=== PATIENT | female | born 1970 | race Caucasian/White ===

== ENCOUNTER 2019-12-10 16:19 | Outpatient (REF) | payer SELFPAY ==
--- NOTE | 2019-12-10 15:40 | PAPFT_PTH ---
PATIENT: Donna Mcfarlane LOC: [facility] U#:[id number] AGE/SX: 49/F ROOM: RE12/10/[address]: PHUONG Gongora : 1970 BED: DIS: 12/10/2019 SPEC #: [id number] RECD: 12/13/19 12:34 STATUS: DARCIE REQ #: [id number] GEORGIE: 12/10/19 15:[address]: Marycruz Ko DEPT: ON LICENSE OF [facility] Cytology RECD BY: Yanely Dobbins ENTERED: 12/13/19 12:34 SP TYPE: PAPFT OT DR: Unknown,Unknown Tissues: 1 - CX/ENDOCX FOR PAP SMEARS Procedures: PAP THIN PREP/[facility] Screening HPV DNA PROBE Comments: [id number]
[2019-12-13 15:46] LABS: Chlamydia Result Negative (Negative); GC Result Negative (Negative)
== END 2019-12-10 16:39 ==
LOC: LBN 16:19
PROVIDERS: Visit Provider Nurse Practitioner Family
DX: Z11.3 Encounter for screening for infections with a predominantly sexual mode of transmission (principal); Z12.4 Encounter for screening for malignant neoplasm of cervix; Z11.51 Encounter for screening for human papillomavirus (HPV)
CPT/HCPCS: 87491; 87591; 88142; 87624

== ENCOUNTER 2021-01-31 01:29 | Outpatient (CLI) | payer OTHER, SELFPAY ==
--- NOTE | 2021-01-31 01:30 | DI.RAD_ITS ---
Exam(s) XR ELBOW RT COMPLETE EXAM: XR ELBOW RT COMPLETE CLINICAL HISTORY: fall, tenderness over radial head. TECHNIQUE: 2D digital imaging was performed. COMPARISON: No exams were available for comparison FINDINGS: There is a mildly depressed/displaced fracture of the radial head. This is on the lateral aspect of the radial head. Capitellum appears unremarkable. There are no other fractures identified. Joint e ffusion-hemarthrosis noted. IMPRESSION: Radial head fracture. DATA REPOSITORY: RADIATION DOSE DELIVERED:
--- NOTE | 2021-01-31 02:44 | DI.VRAD_ITS ---
PROCEDURE INFORMATION: Exam: XR Right Elbow Exam date and time: 01/31/2021 1:37 AM Age: 50 years old Clinical indication: Injury or trauma; Blunt trauma (contusions or hematomas); Elbow; Right; Injury date: 01/29/21; Injury details: Fall, tenderness over radial head TECHNIQUE: Imaging protocol: XR Right elbow. Views: 3 or more views. COMPARISON: No relevant prior studies available. FINDINGS: Bones/joints: Intra-articular fracture is noted at the proximal radius. Depression and diastasis are noted at the articular surface. Distal humerus and proximal ulna are intact. Alignment of the elbow is normal. Soft tissues: Soft tissue swelling is noted around the elbow. Abnormal anterior and posterior fat pads are present, suggesting effusion. IMPRESSION: 1. Intra-articular fracture radial head. 2. Hemarthrosis. Dictated and Authenticated by: Konstantin Alatorre MD. Ordering:LOVE Rushing MD
== END 2021-01-31 01:49 ==
DX: S52.121A Displaced fracture of head of right radius, initial encounter for closed fracture (principal); W19.XXXA Unspecified fall, initial encounter
CPT/HCPCS: 73080